=== PATIENT | male | born 1955 | race Caucasian/White ===

== ENCOUNTER 2025-04-11 08:44 | Outpatient (OUT) | payer MEDICARE, SELFPAY ==
[2025-04-11 09:49] LABS: Hematocrit 28.7 % (42.0-54.0); Hemoglobin 9.0 g/dL (14.0-18.0); Immature Granulocytes Abs Auto 0.04 10^3/uL (0.00-0.03); Immature Granulocytes Pct Auto 0.4 % (0.0-0.5); Lymphocytes Absolute Auto 1.0 10^3/uL (1.2-3.8); Mean Corpuscular HGB Conc 31.4 g/dL (29.9-35.2); Mean Corpuscular Hemoglobin 26.5 pg (25.9-34.0); Mean Corpuscular Volume 84.7 fL (80.0-94.0); Platelet Count 420 10^3/uL (150-450); Red Blood Count 3.39 10^6/uL (4.70-6.10); White Blood Count 9.8 10^3/uL (4.0-11.0)
[2025-04-11 10:34] LABS: Iron 20.0 ug/dL (65.0-175.0); Percent Iron Saturation 14.6 %; Total Iron Binding Capacity 137.0 ug/dL (250.0-450.0)
[2025-04-11 10:53] LABS: Alanine Aminotransferase 18 U/L (16-63); Albumin Globulin Ratio 0.3; Albumin Level 2.0 g/dL (3.4-5.0); Alkaline Phosphatase 128 U/L (46-116); Anion Gap 10.7; Aspartate Amino Transferase 37 U/L (15-37); Blood Urea Nitrogen 17.0 mg/dL (7.0-18.0); Calcium 11.9 mg/dL (8.5-10.1); Carbon Dioxide 33.1 mmol/L (21.0-32.0); Chloride 97 mmol/L (98-107); Estimated GFR (African America >60 (>=60 mL/min/1.73m^2); Estimated GFR (Non-African Ame >60 (>=60 mL/min/1.73m^2); Globulin 6.1 g/dL; Glucose 121 mg/dL (74-106); Sodium 138 mmol/L (136-145); TSH W/ REFLEX FT4 0.865 uIU/mL (0.358-3.740); Total Protein 8.1 g/dL (6.4-8.2)
[2025-04-11 10:55] LABS: Potassium 2.8 mmol/L (3.5-5.1)
[2025-04-11 11:07] LABS: Ferritin 3552.0 ng/mL (26.0-388.0)
== END 2025-04-11 08:45 | disposition home or self-care (01) ==
LOC: LAB 08:44
PROVIDERS: PCP Nurse Practitioner Family; Visit Provider Nurse Practitioner Family
DX: R05.9 Cough, unspecified (principal); R53.83 Other fatigue; D64.9 Anemia, unspecified; R61 Generalized hyperhidrosis
CPT/HCPCS: 36415; 80053; 82728; 83540; 83550; 84443; 85025; 86480

== ENCOUNTER 2025-04-13 15:05 | Emergency (ER) | payer MEDICARE, SELFPAY ==
[2025-04-13] VITALS (29 sets, daily range): BP systolic 153–180; BP diastolic 77–86; PULSE 68–97; TEMP 36.7; O2SAT 97–99; BMI 26.6
--- NOTE | 2025-04-13 15:30 | ECG_ITS ---
The [facility] Test Date: 2025-04-13 Pat Name: MICHAEL DENNISON Department: Room: - Gender: Male [employer]: : 1955 Requested By: [id number] Order Number: [id number] Lexie MD: DAWNA CORONA M.D. Measurements Intervals [place] Rate: 78 P: 12 MS: 126 QRS: -18 QRSD: 152 T: 16 QT: 414 QTc: 447 Interpretive Statements 1100 Sinus rhythm 2450 Right bundle branch block 3414 Cannot rule out septal myocardial infarction, age undetermined 3514 Cannot rule out lateral myocardial infarction, age undetermined 5222 Moderate voltage criteria for LVH, may be normal variant 9150 abnormal ECG No previous ECG available for comparison Electronically Signed On 04-14-2025 7:39:21 EDT by DAWNA CORONA M.D.
--- NOTE | 2025-04-13 15:31 | XR_ITS ---
The [address] [address] Patient Name: MICHAEL DENNISON MRN: [id number] date: 1955 Sex: M Assigned Patient Location: ER Current Patient Location: ER Accession/Order Number: [id number] Exam Date: 04/13/2025 16:01 Report Date: 04/13/2025 16:02 At the request of: DUDLEY FREED Procedure: XR chest 2V XR chest 2V 04/13/2025 3:47 PM SIGNS AND SYMPTOMS: ^cough ^N PROTOCOL: Frontal and lateral radiographs of the chest COMPARISON: None FINDINGS: The trachea is midline. Atherosclerotic changes are noted in the thoracic aorta. The heart and mediastinal structures are within normal limits. The lung parenchyma is clear. The bony thorax is intact. Degenerative changes are noted in the thoracic spine and shoulders. There is evidence of prior cholecystectomy. XR/XR chest 2V IMPRESSION: No acute cardiopulmonary pathology. Impression dictated by: Bipin Cheek M.D. 04/13/2025 4:02 PM Dictation Location: [place] [address] Electronically authenticated by: [id number] Y Date: 04/13/2025 16:02
--- NOTE | 2025-04-13 15:37 | ED.GENADUL1 ---
HPI HPI - General Adult General Chief complaint: Recheck/Abnormal Lab/Rx Stated complaint: abnormal lab value Time Seen by Provider: 04/13/25 15:13 Source: patient Mode of arrival: walk-in Limitations: no limitations History of Present Illness HPI narrative: Labs had lab work drawn on Wednesday was sent over for low potassium he states he is taking 1 potassium supplement that was prescribed. He does note that he is fatigued easily and has had cough x 2 weeks denies any hemoptysis denies any urinary bleeding denies rectal bleeding denies chest pain, abdominal pain, ear pain. Patient denies any blood thinner use including Coumadin. He does bruise easily. Symptoms are mild in severity to moderate severity nothing improves symptoms nothing worsens his symptoms. Onset (ago): week(s) Related Data Allergies Allergy/AdvReac Type Severity Reaction Status Date / Time No Known Drug Allergies Allergy Verified 04/13/25 15:12 Review of Systems ROS Status of ROS 10 or more systems reviewed and unremarkable except as noted in history and below Constitutional Reports: fever, chills and fatigue Eyes Denies: change in vision Ears, nose, mouth, and throat Reports: throat pain Cardiovascular Denies: chest pain or swelling of feet/ankles Respiratory Reports: cough; Denies: shortness of breath Gastrointestinal Denies: abdominal pain, nausea or vomiting Genitourinary Denies: blood in urine Musculoskeletal Reports: back pain Integumentary/Breast Reports: changes in skin color (Patient bruises easily); Denies: rash Neurological Denies: headache Psychiatric Denies: anxiety Endocrine Denies: excessive urination Hematologic/Lymphatic Reports: easy bruising Allergic/Immunologic Denies: hives PFSH PFSH Social History Little interest or pleasure in doing things: not at all Feeling down, depressed, or hopeless: not at all Exam Constitutional Vital Signs, click to edit/add: Last Vital Signs Temp 98.0 F 04/13/25 15:08 Pulse 77 04/13/25 19:10 Resp 21 H 04/13/25 19:10 BP 153/77 H 04/13/25 18:13 Pulse Ox 97 04/13/25 19:10 O2 Del Method Room Air 04/13/25 15:08 Documenting provider has reviewed patient's vital signs: yes Common normals: no apparent distress and oriented x3 HENMT Common normals: normocephalic, external ears normal and EACs normal Head and scalp: normal to inspection Eye Common normals: PERRL and EOMs intact bilaterally Neck & C-Spine Common normals: full ROM and supple Chest Common normals: palpation of chest normal Respiratory Effort & inspection: able to speak in complete sentences Auscultation: clear to auscultation bilaterally Cardio Common normals: regular rate, regular rhythm, S1 normal heart sound and S2 normal heart sound GI Common normals: Normal to inspection, nondistended, normoactive bowel sounds present, soft to palpation and non-tender Back & Pelvis Common normals: thoraco-lumbar ROM normal Extremity Common normals: no pedal edema; abnormal to inspection (Patient left antecubital right volar) Neuro Common normals: moves all extremities and no focal motor deficits Sensorium/orientation: awake and alert Course Vital Signs Vital signs: Vital Signs Temperature 98.0 F 04/13/25 15:08 Pulse Rate 87 04/13/25 15:08 Respiratory Rate 18 04/13/25 15:08 Blood Pressure 180/86 H 04/13/25 15:08 Pulse Oximetry 99 04/13/25 15:08 Oxygen Delivery Method Room Air 04/13/25 15:08 Temperature 98.0 F 04/13/25 15:08 Pulse Rate 77 04/13/25 19:10 Respiratory Rate 21 H 04/13/25 19:10 Blood Pressure 153/77 H 04/13/25 18:13 Pulse Oximetry 97 04/13/25 19:10 Oxygen Delivery Method Room Air 04/13/25 15:08 Medical Decision Making [facility] Narrative Medical decision making narrative: Patient presents with low potassium from Dr. Quesada's office. Patient is not sure why he is going to see Dr. Morillo. He does complain of cough fatigue weight loss change in voice sore throat. Will add CBC CMP magnesium rapid COVID rapid strep chest x-ray EKG. Patient noted to have improved potassium from 2.8-3.4. Magnesium low will replete magnesium 2 g IV over 1 hour. With negative chest x-ray will add CT neck and chest. Discussed with Dr. Stone including CT reports laboratory evaluation. Will disposition home patient has appoint with oncology on Wednesday we discussed at length with patient and family regarding follow-up with oncology, primary care, pulmonary as well as their GI specialist. Will continue the potassium supplement as her potassium has improved. We also will continue magnesium 400 mg daily p.o. Discussed plan of care with patient family at bedside agreeable plan of care. Differential Diagnosis Differential Diagnosis: Include but not limited to hypokalemia hypomagnesemia upper respiratory inf Lab Data Lab results reviewed: Yes I reviewed the patient's lab results Labs: Lab Results 04/13/25 04/13/25 Range/Units 15:20 15:40 PT 12.1 H (9.0-11.6) sec INR 1.16 APTT 32.4 (22.3-36.2) sec Sodium 139 (136-145) mmol/L Potassium 3.6 (3.5-5.1) mmol/L Chloride 98 (98-107) mmol/L Carbon Dioxide 33.7 H (21.0-32.0) mmol/L Anion Gap 10.9 BUN 19.0 H (7.0-18.0) mg/dL Creatinine 1.08 (0.70-1.30) mg/dL Est GFR ( Amer) >60 (>=60 mL/min/1.73m^2) Est GFR (Non-Af Amer) >60 (>=60 mL/min/1.73m^2) BUN/Creatinine Ratio 17.6 Glucose 149 H (74-106) mg/dL Calcium 12.8 H (8.5-10.1) mg/dL Magnesium 1.5 L (1.8-2.4) mg/dL Total Bilirubin 0.9 (0.2-1.0) mg/dL AST 30 (15-37) U/L ALT 17 (16-63) U/L Alkaline Phosphatase 134 H (46-116) U/L Total Protein 8.4 H (6.4-8.2) g/dL Albumin 2.0 L (3.4-5.0) g/dL Globulin 6.4 g/dL Albumin/Globulin Ratio 0.3 SARS-CoV-2 Ag (CV2AG) Negative (NEGATIVE) ECG Data Interpretation: My interpretation sinus rhythm rate 78 ME interval 126 ms QRS 152 ms QTc 447 ms Discharge Plan Discharge Chief Complaint: Recheck/Abnormal Lab/Rx Clinical Impression: History of hypokalemia, Hypomagnesemia, Mass of lung, Tracheal mass, Vasogenic edema Fatigue Qualifiers: Fatigue type: unspecified Qualified Code(s): R53.83 - Other fatigue Patient Disposition: Home, Self-Care Time of Disposition Decision: 19:21 Condition: Good Mode of Transportation: Private Vehicle Print Language: Hungarian Instructions: Fatigue (ED) Additional Instructions: Follow-up with primary care, oncology, pulmonary, gastroenterology. Return to ER if any symptoms worsen or new symptoms develop. Add magnesium 400 mg once daily continue potassium supplement as prescribed. Referrals: pulmonary doctor [Other] - 1 week Paige Ramírez MD [Physician] - As soon as possible NASH SANTANA [Primary Care Provider, Unknown] - 1 week
[2025-04-13 15:47] LABS: Alanine Aminotransferase 17 U/L (16-63); Albumin Globulin Ratio 0.3; Albumin Level 2.0 g/dL (3.4-5.0); Alkaline Phosphatase 134 U/L (46-116); Anion Gap 10.9; Aspartate Amino Transferase 30 U/L (15-37); Blood Urea Nitrogen 19.0 mg/dL (7.0-18.0); Calcium 12.8 mg/dL (8.5-10.1); Carbon Dioxide 33.7 mmol/L (21.0-32.0); Chloride 98 mmol/L (98-107); Estimated GFR (African America >60 (>=60 mL/min/1.73m^2); Estimated GFR (Non-African Ame >60 (>=60 mL/min/1.73m^2); Globulin 6.4 g/dL; Glucose 149 mg/dL (74-106); INR 1.16; Magnesium 1.5 mg/dL (1.8-2.4); Partial Thromboplastin Time 32.4 sec (22.3-36.2); Potassium 3.6 mmol/L (3.5-5.1); Prothrombin Time 12.1 sec (9.0-11.6); Sodium 139 mmol/L (136-145); Total Protein 8.4 g/dL (6.4-8.2)
[2025-04-13 15:56] LABS: SARS-CoV-2 Ag NEGATIVE (NEGATIVE)
--- NOTE | 2025-04-13 16:17 | CT_ITS ---
The [address] [address] Patient Name: MICHAEL DENNISON MRN: [id number] date: 1955 Sex: M Assigned Patient Location: ER Current Patient Location: Accession/Order Number: [id number] Exam Date: 04/13/2025 18:07 Report Date: 04/13/2025 18:13 At the request of: DUDLEY FREED Procedure: CT soft tissue neck w con CT soft tissue neck w con 04/13/2025 5:41 PM SIGNS AND SYMPTOMS: ^sore throat with fatigue and voice change TECHNIQUE: Multidetector CT axial slices of the soft tissues of the neck were obtained with IV contrast. Sagittal and coronal reformats were reconstructed. CT was performed with one or more of the following dose reduction techniques: Automated exposure control, adjustment of the mA and/or kV according to patient size, or use of iterative reconstruction technique. COMPARISON: Sore throat with voice changes FINDINGS: The nasopharynx, oropharynx, hypopharynx, glottic, and subglottic regions are unremarkable. No suspicious cervical adenopathy. Moderate plaque both ICAs. The parotid glands, submandibular, and the thyroid gland are within normal limits. Degenerative changes of the cervical spine. No suspicious. Emphysematous changes within lung apices. There is nonspecific polypoid density along the posterior wall of trachea 1.2 cm in size. Intracranially, there is suspected vasogenic edema left inferior frontal lobe. There is abnormal enhancement left inferior frontal lobe noted measuring at least [address]/CT soft tissue neck w con IMPRESSION: Suspected vasogenic edema and abnormal enhancement left inferior frontal lobe could suggest underlying primary mass or metastatic disease. Recommend MRI without with contrast if there are no contraindications. Nonspecific polypoid thickening posterior wall of the trachea within the upper chest. Impression dictated by: Arvind Willis M.D. 04/13/2025 6:13 PM Dictation Location: [place] [address] Electronically authenticated by: [id number] Y Date: 04/13/2025 18:13
--- NOTE | 2025-04-13 16:17 | CT_ITS ---
The [address] [address] Patient Name: MICHAEL DENNISON MRN: [id number] date: 1955 Sex: M Assigned Patient Location: ER Current Patient Location: ER Accession/Order Number: [id number] Exam Date: 04/13/2025 18:44 Report Date: 04/13/2025 18:48 At the request of: DUDLEY FREED Procedure: CT angio chest CTA chest CLINICAL DATA: Cough, weight loss, fatigue. TECHNIQUE: Intravenous contrast-enhanced CT angiography of the chest was performed. Axial, sagittal, coronal, and 3D-dimensional reconstructions were created and reviewed. These CT exams were performed using one or more of the following dose reduction techniques: Automated exposure control, adjustment of the mA and/or kV according to patient size, or use of iterative reconstruction technique. COMPARISON: None. FINDINGS: Chest: Mediastinum:Cardiomegaly. No aortic dissection or aneurysm. No central pulmonary emboli. There are calcified granulomas identified in both hilar regions. There are left hilar lymph nodes up to 1.7 x 1.7 cm in size. 3 carinal lymph node 1.3 x 2.0 cm. Polypoid soft tissue thickening posterior wall of the trachea 1 x 0.7 cm in size. Lungs:Hypoventilatory changes right lung base. Granulomatous calcifications right middle lobe. Within the left lower lobe, there is a left lower lobe mass measuring roughly 8.8 x 7.9 cm on axial imaging. Central low-attenuation the mass noted may suggest underlying necrosis. Suspect small left-sided effusion. Abd: Low attenuation of the liver can be seen with fatty infiltration.[ Soft tissues/Bones: Degenerative changes. No suspicious osseous lesion. Multilevel bony ankylosis. CT/CT angio chest IMPRESSION: Negative for aortic dissection or aneurysm. No central pulmonary emboli identified. Left lower lobe mass 8.8 cm in size with left hilar and mediastinal lymph nodes noted worrisome for primary lung cancer. Impression dictated by: Arvind Willis M.D. 04/13/2025 6:48 PM Dictation Location: [place] [address] Electronically authenticated by: [id number] Y Date: 04/13/2025 18:48
[2025-04-13] MEDS: MAGNESIUM SULFATE IN WATER 2 GM/50 ML PREMIX IV (16:43)
== END 2025-04-13 19:51 | disposition home or self-care (01) ==
PROVIDERS: Physician Assistant; Emergency Provider Emergency Medicine; PCP Nurse Practitioner Family
DX: E87.6 Hypokalemia (principal); E83.42 Hypomagnesemia; R91.8 Other nonspecific abnormal finding of lung field; D49.1 Neoplasm of unspecified behavior of respiratory system; E53.8 Deficiency of other specified B group vitamins
CPT/HCPCS: 36415; 70491; 71046; 71275; 80053; 83735; 85610; 85730; 87811; 93005; 96365; 96366; 99285; J3475; Q9967

== ENCOUNTER 2025-04-17 07:38 | Outpatient (RCR) | payer MEDICARE, SELFPAY | END 2025-05-06 23:59 | disposition home or self-care (01) | LOC: HEMC 07:38 | PROVIDERS: PCP Nurse Practitioner Family; Visit Provider Internal Medicine Hematology & Oncology | DX: C34.32 Malignant neoplasm of lower lobe, left bronchus or lung (principal); Z87.891 Personal history of nicotine dependence; R63.4 Abnormal weight loss; R05.9 Cough, unspecified; R06.02 Shortness of breath; I10 Essential (primary) hypertension; Z90.49 Acquired absence of other specified parts of digestive tract | CPT/HCPCS: G0463 ==